=== PATIENT | male | born 1990 | race Caucasian/White ===

== ENCOUNTER 2024-09-04 19:29 | Emergency (ER) | payer SELFPAY ==
[~2024-09-04] VITALS: Ht 175.2 cm; Wt 83.9 kg
[2024-09-04] MEDS ORDERED: Tdap Vaccine 0.5 ML SYR (Adult Vaccine) IM ONE (19:55)
[2024-09-04] MEDS ORDERED: Bacitracin Zinc 14 GM TUBE T ONE (20:15)
== END 2024-09-04 20:32 | disposition home or self-care (01) ==
LOC: ED 19:29
DX: S01.83XA Puncture wound without foreign body of other part of head, initial encounter (principal); W22.03XA Walked into furniture, initial encounter; Y93.89 Activity, other specified; Y92.89 Other specified places as the place of occurrence of the external cause; Y99.8 Other external cause status